=== PATIENT | female | born 1975 | race Hispanic/Latino ===

== ENCOUNTER 2018-03-29 20:00 | Inpatient (IN) | payer SELFPAY ==
[2018-03-29 20:52] LABS: Basophils # (Auto) 0.1 K/mm3 (0.0-0.1); Basophils % (Auto) 0.6 % (0.0-1.8); Eosinophils # (Auto) 0.4 K/mm3 (0.0-0.4); Eosinophils % (Auto) 3.4 % (0.0-4.3); Hematocrit 40.9 % (30.3-42.9); Hemoglobin 13.5 gm/dl (10.1-14.3); Lymphocytes # (Auto) 2.3 K/mm3 (1.2-5.4); Lymphocytes % (Auto) 20.4 % (13.4-35.0); Mean Corpuscular HGB Conc 33 % (30-34); Mean Corpuscular Volume 88 fl (79-97); Monocytes # (Auto) 0.7 K/mm3 (0.0-0.8); Platelet Count 291 K/mm3 (140-440); Red Blood Count 4.64 M/mm3 (3.65-5.03); Red Cell Distribution Width 14.8 % (13.2-15.2)
[2018-03-29 21:16] LABS: BUN/Creatinine Ratio 12; Blood Urea Nitrogen 11 mg/dL (7-17); Calcium 9.2 mg/dL (8.4-10.2); Hemolysis Index 17
--- NOTE | 2018-03-30 00:20 | Emergency Department Report ---
ED Chest Pain HPI - General Chief Complaint: Chest Pain Stated Complaint: CHEST PAIN Time Seen by Provider: 03/30/18 00:16 Source: patient Mode of arrival: Wheelchair Limitations: No Limitations - History of Present Illness MD Complaint: chest pain -: Sudden Pain Location: left chest Pain Radiation: LUE Severity: severe Severity scale (0 -10): 9 Quality: sharp Consistency: constant Improves With: rest Worsens With: exertion re: dyspnea. denies: nausea, vomting, diaphoresis, sense of impending doom Other Symptoms: leg swelling. denies: cough, fever, syncope, rash, acid taste in mouth, palpitations, burping Treatments Prior to Arrival: none Aspirin use within the Past 7 Days: (0) No - Related Data On Oral Contraceptives: No Allergies Allergy/AdvReac Type Severity Reaction Status Date / Time codeine Allergy Vomiting Verified 03/29/18 20:23 Penicillins Allergy Hives Verified 03/29/18 20:23 Sulfa (Sulfonamide Allergy Hives Verified 03/29/18 20:23 Antibiotics) tramadol [From [facility]] Allergy Anaphylaxis Verified 03/29/18 20:23 Heart Score - HEART Score History: Slightly suspicious EKG: Non-specific Age: < 45 Risk factors: No known risk factors Troponin: < normal limit HEART Score: 1 ED Review of Systems ROS: Stated complaint: CHEST PAIN Other details as noted in HPI Constitutional: denies: chills, fever Eyes: denies: eye pain, eye discharge, vision change ENT: denies: ear pain, throat pain Respiratory: shortness of breath. denies: cough, wheezing Cardiovascular: chest pain, edema. denies: palpitations Endocrine: no symptoms reported Gastrointestinal: denies: abdominal pain, nausea, diarrhea Genitourinary: denies: urgency, dysuria, discharge Musculoskeletal: denies: back pain, joint swelling, arthralgia Skin: denies: rash, lesions Neurological: denies: headache, weakness, paresthesias Psychiatric: denies: anxiety, depression Hematological/Lymphatic: denies: easy bleeding, easy bruising ED Past Medical Hx - Past Medical History Previous Medical History?: Yes Hx Hypertension: Yes - Surgical History Past Surgical History?: Yes Hx Cholecystectomy: Yes Hx Appendectomy: Yes Additional Surgical History: tonsillectomy, adenoidectomy, c- section x2, tubal ligation, right wrist and ankle - Family History Family history: no significant - Social History Smoking Status: Current Every Day Smoker Substance Use Type: None ED Physical Exam - General Limitations: No Limitations General appearance: alert, in no apparent distress - Head Head exam: Present: atraumatic, normocephalic - Eye Eye exam: Present: normal appearance - ENT ENT exam: Present: mucous membranes moist - Neck Neck exam: Present: normal inspection - Respiratory Respiratory exam: Present: normal lung sounds bilaterally. Absent: respiratory distress - Cardiovascular Cardiovascular Exam: Present: regular rate, normal rhythm. Absent: systolic murmur, diastolic murmur, rubs, gallop - GI/Abdominal GI/Abdominal exam: Present: soft, normal bowel sounds - Extremities Exam Extremities exam: Present: pedal edema (left lower leg.) - Back Exam Back exam: Present: normal inspection - Neurological Exam Neurological exam: Present: alert, oriented X3 - Psychiatric Psychiatric exam: Present: normal affect, normal mood - Skin Skin exam: Present: warm, dry, intact, normal color. Absent: rash ED Course Vital Signs 03/29/18 03/30/18 03/30/18 20:23 00:48 01:00 Temperature 98.1 F Pulse Rate 102 H 83 82 Respiratory 18 20 Rate Blood Pressure 144/89 124/83 O2 Sat by Pulse 96 Oximetry 03/30/18 03/30/18 03/30/18 01:16 01:30 01:34 Temperature 98.4 F Pulse Rate 83 88 Respiratory 17 17 Rate Blood Pressure 124/83 124/83 O2 Sat by Pulse Oximetry 03/30/18 03/30/18 03/30/18 01:46 02:00 02:16 Temperature Pulse Rate 88 88 89 Respiratory 19 18 18 Rate Blood Pressure 124/83 125/82 125/82 O2 Sat by Pulse Oximetry 03/30/18 03/30/18 03/30/18 02:30 02:46 03:00 Temperature Pulse Rate 84 90 89 Respiratory 16 18 18 Rate Blood Pressure 125/82 125/82 114/82 O2 Sat by Pulse Oximetry 03/30/18 03/30/18 03/30/18 03:16 03:30 03:46 Temperature Pulse Rate 87 89 88 Respiratory 16 16 16 Rate Blood Pressure 114/82 114/82 114/82 O2 Sat by Pulse Oximetry 03/30/18 03/30/18 03/30/18 04:00 04:16 04:30 Temperature Pulse Rate 87 88 90 Respiratory 16 16 22 Rate Blood Pressure 118/82 118/82 118/82 O2 Sat by Pulse Oximetry 03/30/18 03/30/18 03/30/18 04:46 05:00 05:16 Temperature Pulse Rate 91 H 89 90 Respiratory 18 19 19 Rate Blood Pressure 118/82 132/88 132/88 O2 Sat by Pulse Oximetry 03/30/18 03/30/18 05:30 05:46 Temperature Pulse Rate 94 H 92 H Respiratory 24 18 Rate Blood Pressure 132/88 132/88 O2 Sat by Pulse Oximetry - Reevaluation(s) Reevaluation #1: Discussed all results with patient. Patient agrees to plan of care and admission. Patient admitted to the hospitalist service 03/30/18 01:13 - Consultations Consultation #1: Hospitalist consult. Hospitalist to admit patient and assume care of patient. 03/30/18 01:33 RAFAEL score - Rafael Score Age > 65: (0) No Aspirin use within the Past 7 Days: (0) No 3 or more CAD Risk Factors: (0) No 2 or more Angina events in past 24 hrs: (1) Yes Known CAD with more than 50% Stenosis: (0) No Elevated Cardiac Markers: (0) No ST Deviation Greater than 0.5mm: (0) No RAFAEL Score: 1 ED Medical Decision Making - Lab Data Result diagrams: 03/29/18 20:41 03/29/18 20:41 - EKG Data -: EKG Interpreted by Ks EKG shows normal: sinus rhythm, axis, intervals, QRS complexes, ST-T waves Rate: tachycardia - Medical Decision Making Patient is a 42-year-old female that presents emergency room with complaints of chest pain shortness of breath. Patient stated chest pain radiating to her left upper extremity. Patient's initial cardiac workup negative. Patient's d-dimer negative. Patient's labs essentially unremarkable. Patient admitted to the hospitalist service for further evaluation treatment - Differential Diagnosis cp. sob Critical care attestation.: If time is entered above; I have spent that time in minutes in the direct care of this critically ill patient, excluding procedure time. ED Disposition Clinical Impression: Lower extremity edema, Shortness of breath Chest pain Qualifiers: Chest pain type: unspecified Qualified Code(s): R07.9 - Chest pain, unspecified Disposition: DC-09 OP ADMIT IP TO THIS HOSP Is pt being admited?: Yes Does the pt Need Aspirin: No Condition: Serious Time of Disposition: 01:41
[2018-03-30] MEDS ORDERED: MORPHINE IV ONE (05:03)
[2018-03-30] MEDS ORDERED: ZOFRAN IV ONE (05:04)
[2018-03-30 08:45] LABS: Creatine Kinase MB < 1.0 ng/mL (0.0-4.0)
--- NOTE | 2018-03-30 10:02 | History and Physical Report ---
History of Present Illness Date of examination: 03/30/18 Date of admission: 03/30/18 05:59 Chief complaint: chest pain History of present illness: This is a morbidly obese WF presented to the Er with c/o chest pain from last night, pain is nonexertional, radiated to her left arm, w/o SOB, no nausea, no palpitation. Her pain is sharp in nature, 8/10 in intensity. Her initial CE is normal, no ST changes in EKG, XRY chest negative for infiltrates. She is getting admitted for further evaluation and management. Review of System: Constitutional: no fever, no chills, no weight loss Ears, eyes, nose, mouth and throat: no nasal congestion, no nasal discharge, no sinus pressure, no vision change, no red eye. Neck: No neck pain or rigidity. Cardiovascular: + chest pain, no orthopnea, no palpitations, no leg swelling Respiratory: No shortness of breath, no cough, no congestion, no wheezing Gastrointestinal: no abdominal pain, no nausea, no vomiting Genitourinary : no dysuria, no hematuria Musculoskeletal: no joint swelling or muscle ache Integumentary: no rash, no pruritis Neurological: LLE weakness Endocrine: no cold or heat intolerance, no polyuria or polydipsia Hematologic/Lymphatic: no easy bruising, no easy bleeding, no gland swelling Allergic/Immunologic: no urticaria, no angioedema. Past History Past Medical History: other (MDD, anxiety, HTN, obesity, ) Past Surgical History: appendectomy, cholecystectomy, , tonsillectomy Social history: smoking. denies: alcohol abuse, prescription drug abuse Family history: hypertension Medications and Allergies Allergies Allergy/AdvReac Type Severity Reaction Status Date / Time codeine Allergy Vomiting Verified 03/29/18 20:23 Penicillins Allergy Hives Verified 03/29/18 20:23 Sulfa (Sulfonamide Allergy Hives Verified 03/29/18 20:23 Antibiotics) tramadol [From Ultram] Allergy Anaphylaxis Verified 03/29/18 20:23 Home Medications Medication Instructions Recorded Confirmed Last Taken Type Doxepin [SINEquan] 50 mg PO HS 03/30/18 03/30/18 03/28/18 History Haloperidol [Haldol] 2 mg PO BID 03/30/18 03/30/18 03/29/18 History Ibuprofen [Ibu] 600 mg PO PRN PRN 03/30/18 03/30/18 Unknown History [place] Carbonate [[place] 450 mg PO TID 03/30/18 03/30/18 03/29/18 History Carbonate ER] Quetiapine Fumarate (Nf) [SEROquel 600 mg PO QHS 03/30/18 03/30/18 03/28/18 History XR] Sertraline [Zoloft] 200 mg PO BID 03/30/18 03/30/18 03/29/18 History Tizanidine HCl [Zanaflex] 2 mg PO BID 03/30/18 03/30/18 03/29/18 History buPROPion SR [Wellbutrin Sr] 150 mg PO BID 03/30/18 03/30/18 03/29/18 History Exam - Constitutional Vitals: Temp Pulse Resp BP Pulse Ox 98.2 F 90 16 142/82 98 03/30/18 09:06 03/30/18 09:06 03/30/18 09:06 03/30/18 09:06 03/30/18 09:06 General appearance: Present: no acute distress, obese - EENT Eyes: Present: PERRL ENT: hearing intact, clear oral mucosa - Neck Neck: Present: supple, normal ROM - Respiratory Respiratory effort: normal Respiratory: bilateral: CTA - Cardiovascular Heart Sounds: Present: S1 & S2. Absent: rub, click - Extremities Extremities: pulses symmetrical, No edema Peripheral Pulses: within normal limits - Abdominal General gastrointestinal: Present: soft, non-tender, non-distended, normal bowel sounds - Integumentary Integumentary: Present: clear, warm, dry - Musculoskeletal Musculoskeletal: left sided weakness - Psychiatric Psychiatric: appropriate mood/affect, intact judgment & insight - Neurologic Neurologic: CNII-XII intact, no gait normal, other (left LE weakness) Results - Labs CBC & Chem 7: 03/29/18 20:41 03/29/18 20:41 Labs: Abnormal lab results 03/29/18 03/29/18 Range/Units 20:41 20:41 WBC 11.4 H (4.5-11.0) K/mm3 Seg Neutrophils # 7.9 H (1.8-7.7) K/mm3 Glucose 121 H (65-100) mg/dL - Imaging and Cardiology CT scan - chest: report reviewed Assessment and Plan Chest pain, atypical Morbid obesity HTN. diet controlled Tobacco abuse LLE weakness/paresis on wheel chair MDD - admit tele, monitor with serial CE, EKG - 2d echo, consult cardiology - resume home meds, DVT Px
[2018-03-30 11:21] LABS: Creatine Kinase MB < 1.0 ng/mL (0.0-4.0)
[2018-03-30] MEDS ORDERED: ZANAFLEX PO PRN (13:37)
[2018-03-30] MEDS: PERCOCET 5/325 PO PRN ×2 (14:03→19:57)
[2018-03-30] MEDS: LITHOBID ER PO SCH ×2 (15:22→19:57)
[2018-03-30 15:31] LABS: Creatine Kinase MB < 1.0 ng/mL (0.0-4.0)
[2018-03-30] MEDS: ASPIRIN PO SCH (17:48)
[2018-03-30 17:55] LABS: Creatine Kinase MB < 1.0 ng/mL (0.0-4.0)
--- NOTE | 2018-03-30 18:07 | XRay Report ---
FINAL REPORT EXAM: XR CHEST 1V AP HISTORY: chest pain TECHNIQUE: upright single view chest PRIORS: None. FINDINGS: Cardiac and mediastinal contours are unremarkable. No focal pulmonary infiltrate is identified. No pleural fluid collection seen. Pulmonary vasculature is unremarkable. IMPRESSION: Negative single-view chest
[2018-03-30] MEDS: ZOLOFT PO SCH (21:56)
[2018-03-30] MEDS: ZANAFLEX PO SCH (21:57)
[2018-03-30] MEDS: SINEquan PO SCH (21:57)
[2018-03-30] MEDS: HALDOL PO SCH (21:58)
[2018-03-30] MEDS: LOVENOX SUB-Q SCH (21:58)
[2018-03-30] MEDS: WELLBUTRIN SR PO SCH (21:58)
[2018-03-30] MEDS ORDERED: DOXEPIN 50 MG PO SCH (22:00)
[2018-03-30] MEDS ORDERED: QUETIAPINE FUMARATE 600 MG PO SCH (22:00)
[2018-03-30] MEDS ORDERED: NON-FORMULARY (Tizanidine Hcl [Zanaflex] 2 MG) PO SCH (22:00)
[2018-03-30 23:27] LABS: Creatine Kinase MB < 1.0 ng/mL (0.0-4.0)
[2018-03-31] MEDS: PERCOCET 5/325 PO PRN ×2 (02:54→13:39)
[2018-03-31] MEDS: LITHOBID ER PO SCH ×3 (08:35→21:34)
[2018-03-31] MEDS: ASPIRIN PO SCH (09:52)
[2018-03-31] MEDS: ZOLOFT PO SCH ×2 (09:52→21:36)
[2018-03-31] MEDS: HALDOL PO SCH ×2 (09:53→21:36)
[2018-03-31] MEDS: ZANAFLEX PO SCH ×2 (09:53→21:35)
[2018-03-31] MEDS: WELLBUTRIN SR PO SCH ×2 (09:53→21:36)
--- NOTE | 2018-03-31 13:55 | Consultation ---
History of Present Illness Consult date: 03/31/18 Consult reason: chest pain History of present illness: Chest pain on and off 1 day duration,started on day of admission,sharp,left mammary area,at rest,intermittent,recurrent.No previous cardiac history. Past History Past Medical History: hypertension (of few years.major depressive disorder,being treated at [facility]([place]) prior to admission.Hx of left leg weakness of few years,wheel chair bound,?from back problem.), other (MDD, anxiety, HTN, obesity, ). denies: CAD, diabetes, heart failure Past Surgical History: appendectomy, cholecystectomy, , tonsillectomy Social history: single (,ahas grown up children.), smoking (1/2 ppd.). denies: alcohol abuse, prescription drug abuse Family history: hypertension Medications and Allergies Allergies Allergy/AdvReac Type Severity Reaction Status Date / Time codeine Allergy Vomiting Verified 03/29/18 20:23 Penicillins Allergy Hives Verified 03/29/18 20:23 Sulfa (Sulfonamide Allergy Hives Verified 03/29/18 20:23 Antibiotics) tramadol [From Ultram] Allergy Anaphylaxis Verified 03/29/18 20:23 Home Medications Medication Instructions Recorded Confirmed Last Taken Type Doxepin [SINEquan] 50 mg PO HS 03/30/18 03/30/18 03/28/18 History Haloperidol [Haldol] 2 mg PO BID 03/30/18 03/30/18 03/29/18 History Ibuprofen [Ibu] 600 mg PO PRN PRN 03/30/18 03/30/18 Unknown History [place] Carbonate [[place] 450 mg PO TID 03/30/18 03/30/18 03/29/18 History Carbonate ER] Quetiapine Fumarate (Nf) [SEROquel 600 mg PO QHS 03/30/18 03/30/18 03/28/18 History XR] Sertraline [Zoloft] 200 mg PO BID 03/30/18 03/30/18 03/29/18 History Tizanidine HCl [Zanaflex] 2 mg PO BID 03/30/18 03/30/18 03/29/18 History buPROPion SR [Wellbutrin Sr] 150 mg PO BID 03/30/18 03/30/18 03/29/18 History Active Meds: Active Medications Aspirin (Aspirin) 325 mg PO QDAY [place] Last Admin: 03/31/18 09:52 Dose: 325 mg Documented by: Atorvastatin Calcium (Lipitor) 40 mg PO QHS [facility] Last Admin: 03/30/18 21:58 Dose: 40 mg Documented by: Bupropion HCl (Wellbutrin Sr) 150 mg PO BID [facility] Last Admin: 03/31/18 09:53 Dose: 150 mg Documented by: Doxepin HCl (Sinequan) 50 mg PO [facility] Last Admin: 03/30/18 21:57 Dose: 50 mg Documented by: Enoxaparin Sodium (Lovenox) 40 mg SUB-Q QDAY@2200 [facility] Last Admin: 03/30/18 21:58 Dose: 40 mg Documented by: Haloperidol (Haldol) 2 mg PO BID [facility] Last Admin: 03/31/18 09:53 Dose: 2 mg Documented by: [place] Carbonate (Lithobid Er) 450 mg PO TID [facility] Last Admin: 03/31/18 13:39 Dose: 450 mg Documented by: Oxycodone/Acetaminophen (Percocet 5/325) 1 tab PO Q6H PRN PRN Reason: Pain, Moderate (4-6) Last Admin: 03/31/18 13:39 Dose: 1 tab Documented by: Quetiapine Fumarate (Seroquel) 600 mg PO [facility] Last Admin: 03/30/18 21:55 Dose: 600 mg Documented by: Sertraline HCl (Zoloft) 200 mg PO BID [facility] Last Admin: 03/31/18 09:52 Dose: 200 mg Documented by: Tizanidine HCl (Zanaflex) 2 mg PO BID [facility] Last Admin: 03/31/18 09:53 Dose: 2 mg Documented by: Review of Systems Constitutional: no weight loss Ears, nose, mouth and throat: no ear discharge Breasts: deferred Cardiovascular: chest pain, high blood pressure, no palpitations, no leg edema Respiratory: no cough Gastrointestinal: no abdominal pain Musculoskeletal: no neck pain Integumentary: no rash Neurological: weakness (left lower extremity.) Psychiatric: depression Endocrine: no cold intolerance Physical Examination Vital Signs Temp Pulse Resp BP Pulse Ox 98.1 F 102 H 18 144/89 96 03/29/18 20:23 03/29/18 20:23 03/29/18 20:23 03/29/18 20:23 03/29/18 20:23 General appearance: no acute distress, obese HEENT: Positive: PERRL Neck: Positive: neck supple, trachea midline Cardiac: Positive: Reg Rate and Rhythm Lungs: Positive: Normal Breath Sounds Neuro: Positive: Weakness (left lower extremity.) Abdomen: Positive: Unremarkable Female genitourinary: deferred Skin: Positive: Clear Extremities: Absent: edema Results 03/29/18 20:41 03/29/18 20:41 Cardiac Enzymes 03/30/18 03/30/18 03/30/18 Range/Units 14:54 16:39 22:37 CK-MB (CK-2) < 1.0 < 1.0 < 1.0 (0.0-4.0) ng/mL EKG interpretations - Telemetry EKG Rhythm: Sinus Rhythm (,WNL.) Assessment and Plan Atypical chest pain of 1 day duretion,with hx. of HTN,chronic smoking,obesity and inactivity. Etiology of chest pain is unclear,will get ischemic evaluation with iv Lexiscan MPI. patient is aggreable. - Patient Problems (1) Chest pain Current Visit: Yes Status: Acute Qualifiers: Chest pain type: unspecified Qualified Code(s): R07.9 - Chest pain, unspecified (2) Shortness of breath Current Visit: Yes Status: Acute
--- NOTE | 2018-03-31 15:24 | Progress Note ---
Assessment and Plan Chest pain, atypical Morbid obesity HTN. diet controlled Tobacco abuse LLE weakness/paresis on wheel chair MDD - monitor at, negative serial CE, EKG - follow 2d echo, consulted cardiology: planned for stress test tomorrow - resumed home meds, DVT Px Subjective Date of service: 03/31/18 Interval history: patient seen and examined Continue to c/o chest pain Objective - Exam Narrative Exam: General appearance: Present: no acute distress, obese - EENT Eyes: Present: PERRL ENT: hearing intact, clear oral mucosa - Neck Neck: Present: supple, normal ROM - Respiratory Respiratory effort: normal Respiratory: bilateral: CTA - Cardiovascular Heart Sounds: Present: S1 & S2. Absent: rub, click - Extremities Extremities: pulses symmetrical, No edema Peripheral Pulses: within normal limits - Abdominal General gastrointestinal: Present: soft, non-tender, non-distended, normal bowel sounds - Integumentary Integumentary: Present: clear, warm, dry - Musculoskeletal Musculoskeletal: left sided weakness - Psychiatric Psychiatric: appropriate mood/affect, intact judgment & insight - Neurologic Neurologic: CNII-XII intact, no gait normal, other (left LE weakness) - Constitutional Vitals: Vital Signs - 12hr 03/31/18 03/31/18 04:41 07:59 Temperature 97.6 F 97.9 F Pulse Rate 84 88 Respiratory 18 20 Rate Blood Pressure 94/51 138/73 O2 Sat by Pulse 97 98 Oximetry - Labs CBC & Chem 7: 03/29/18 20:41 03/29/18 20:41
[2018-03-31] MEDS: LOVENOX SUB-Q SCH (21:35)
[2018-03-31] MEDS: SINEquan PO SCH (21:35)
[2018-04-01] MEDS ORDERED: LEXISCAN IV ONE ×2 (10:54→10:58)
[2018-04-01 12:41] VITALS: BP 154/79
[2018-04-01] MEDS: ZOLOFT PO SCH (13:29)
[2018-04-01] MEDS: ASPIRIN PO SCH (13:30)
[2018-04-01] MEDS: HALDOL PO SCH (13:30)
[2018-04-01] MEDS: ZANAFLEX PO SCH (13:30)
[2018-04-01] MEDS: WELLBUTRIN SR PO SCH (13:30)
[2018-04-01] MEDS: LITHOBID ER PO SCH ×2 (13:31)
--- NOTE | 2018-04-01 13:48 | Discharge Summary ---
Providers - Providers Date of Admission: 03/30/18 05:59 Date of discharge: 04/01/18 Attending physician: THU KIRK 03/30/18 16:30 Consult to Physician [CONS] Routine Comment: Consulting Provider: VERONICA JIMENEZ Physician Instructions: Reason For Exam: chest pain Primary care physician: [employer]TER [employer]ER Hospitalization Condition: Serious Pertinent studies: cxr 2d echo stress test Hospital course: This is a morbidly obese WF presented to the Er with c/o chest pain from last night, pain is nonexertional, radiated to her left arm, w/o SOB, no nausea, no palpitation. Her initial CE is normal, no ST changes in EKG, XRY chest negative for infiltrates. She was admitted for further evaluation and management. Her 2d echo was normal, and had a normal stress test. She was then discharged home in stable condition. Discharge diagnosis: Chest pain, atypical - preserved EF on 2d echo, normal stress test Morbid obesity HTN. diet controlled Tobacco abuse LLE weakness/paresis on wheel chair, chronic MDD Disposition: TO HOME OR SELFCARE Time spent for discharge: 34 minutes Core Measure Documentation - Palliative Care Palliative Care/ Comfort Measures: Not Applicable - Core Measures Any of the following diagnoses?: history only Exam - Physical Exam Narrative exam: General appearance: Present: no acute distress, obese - EENT Eyes: Present: PERRL ENT: hearing intact, clear oral mucosa - Neck Neck: Present: supple, normal ROM - Respiratory Respiratory effort: normal Respiratory: bilateral: CTA - Cardiovascular Heart Sounds: Present: S1 & S2. Absent: rub, click - Extremities Extremities: pulses symmetrical, No edema Peripheral Pulses: within normal limits - Abdominal General gastrointestinal: Present: soft, non-tender, non-distended, normal bowel sounds - Integumentary Integumentary: Present: clear, warm, dry - Musculoskeletal Musculoskeletal: left sided weakness - Psychiatric Psychiatric: appropriate mood/affect, intact judgment & insight - Neurologic Neurologic: CNII-XII intact, no gait normal, other (left LE weakness) - Constitutional Vitals: Temp Pulse Resp BP Pulse Ox 98.3 F 97 H 20 154/79 98 04/01/18 04:34 04/01/18 11:41 04/01/18 04:34 04/01/18 11:41 04/01/18 04:34 Plan Activity: fall precautions Weight Bearing Status: Non-Weight Bearing Diet: low fat, low salt Follow up with: PRIMARY CARE, [Primary Care Provider] - 7 Days Prescriptions: AtorvaSTATin [Lipitor] 40 mg PO QHS #30 tablet Pantoprazole [Protonix] 40 mg PO QDAY #30 tablet
--- NOTE | 2018-04-01 13:55 | Progress Note ---
Assessment and Plan TTE reviewed - normal LVEF, no significant valvular abnormalities. S/p lexiscan MPI stress test this AM which was negative for ischemia, EF 65%. Currently stable cardiac status. Pt may discharge home from cardiology standpoint. Smoking cessation encouraged. Recommend follow up in our office with Dr. Mukherjee within 1-2 weeks of hospital discharge ([phone]). The patient has been seen in conjunction with Dr. Mcmanus who agrees with the assessment and plan of care. - Patient Problems (1) Chest pain Current Visit: Yes Status: Acute Qualifiers: Chest pain type: unspecified Qualified Code(s): R07.9 - Chest pain, unspecified (2) Shortness of breath Current Visit: Yes Status: Acute (3) HTN (hypertension) Current Visit: Yes Status: Chronic (4) Morbid obesity with BMI of 50.0-59.9, adult Current Visit: Yes Status: Chronic (5) Tobacco use Current Visit: Yes Status: Chronic Subjective Date of service: 04/01/18 Principal diagnosis: cp Interval history: pt seen s/p stress test this AM, resting in bed. still with c/o intermittent mild chest pressure, the pain is very deep. Objective Last Vital Signs Temp 98.3 F 04/01/18 04:34 Pulse 97 H 04/01/18 11:41 Resp 20 04/01/18 04:34 BP 154/79 04/01/18 11:41 Pulse Ox 98 04/01/18 04:34 - Physical Examination General: No Apparent Distress HEENT: Positive: PERRL Neck: Positive: neck supple, trachea midline Cardiac: Positive: Reg Rate and Rhythm, S1/S2 Lungs: Positive: clear to auscultation Neuro: Positive: Weakness (left lower extremity.) Abdomen: Positive: Unremarkable Skin: Positive: Clear Extremities: Absent: edema - Imaging and Cardiology EKG: report reviewed, image reviewed - Telemetry EKG Rhythm: Sinus Rhythm
== END 2018-04-01 15:30 | disposition home or self-care (01) | DRG 313 ==
LOC: ED 20:00 → 4A 03-30 05:59
PROVIDERS: ADMIT Internal Medicine; ATTEND Internal Medicine
DX: R07.89 Other chest pain (principal); F33.9 Major depressive disorder, recurrent, unspecified; Z68.43 Body mass index [BMI] 50.0-59.9, adult; I10 Essential (primary) hypertension; E66.01 Morbid (severe) obesity due to excess calories; F17.200 Nicotine dependence, unspecified, uncomplicated; R53.1 Weakness; F41.9 Anxiety disorder, unspecified; Z90.49 Acquired absence of other specified parts of digestive tract; Z82.49 Family history of ischemic heart disease and other diseases of the circulatory system; Z88.6 Allergy status to analgesic agent; Z88.0 Allergy status to penicillin; Z88.2 Allergy status to sulfonamides; Z88.8 Allergy status to other drugs, medicaments and biological substances
CPT/HCPCS: 36415; 71045; 78452; 80048; 82550; 82553; 83880; 84484; 85025; 85379; 93005; 93010; 93017; 93306; 96374; 96375; G0378; A9270-GY; A9502; J1650; J2270; J2405; J2785